=== PATIENT | female | born 1960 | race Caucasian/White ===

== ENCOUNTER 2025-02-04 10:40 | Outpatient (CLI) | payer MEDICARE, SELFPAY ==
--- OUTSIDE RECORDS SUMMARY | 2025-02-04 11:19 | XMS_ITS | Clinical Summary ---
Author Organization [facility] Address [address] [place] [id number] Care Team Providers Care Bus Attendant Name Role Phone Collins Alonzo PA-C Primary Care Provider [phone] Allergies Active Allergy Reactions Criticality Noted Date Comments No Known Drug Allergy 01/02/2003 Medications Pseudoephedrine-G uaifenesin (MUCINEX D PO) Take by mouth. Active Uneoragvq-JIB-EN- APAP (TYLENOL COLD PO) Take by mouth. Active fluticasone (FLONASE) 50 MCG/ACT nasal sprayIndications: Sinusitis 2 sprays by Both Nostrils route daily. 1 Package 1 1 Active lisinopril (PRINIVIL,ZESTRIL ) 10 MG tabletIndications :Unspecified essential hypertension Take 1 tablet by mouth daily. 90 tablet 0 1 Active order for DMEIndications:Fo ot sprain, left, initial encounter Crutches 1 Device 7 Active Active Problems Problem Noted Date Diagnosed Date Fatty liver disease, nonalcoholic 07/20/2010 Overview (05/07/2012): (Problem list name updated by automated process. Provider to review and confirm.) Hypertension goal BP (blood pressure) < 140/90 1 09/19/2009 Hypertriglyceridemia 07/19/2010 Elevated fasting glucose 07/19/2010 Obstructive sleep apnea 07/19/2010 Obesity 07/19/2010 CARDIOVASCULAR SCREENING; LDL GOAL LESS THAN 160 06/06/2010 Resolved Problems Problem Noted Date Diagnosed Date Resolved Date Symptomatic menopausal or fe male climacteric states 11/06/2006 07/19/2010 Obesity 02/21/2006 07/19/2010 Overview (05/07/2015): Problem list name updated by automated process. Provider to review Obstructive sleep apnea 02/21/200607/07 Overview (05/07/2015): Problem list name updated by automated process. Provider to review Essential hypertension 02/21/200607/19 Overview (05/07/2015): Problem list name updated by automated process. Provider to review Immunizations Immunization Administration Dates Next Due Influenza (IIV3) PF 05/28/2010 Family History Medical History Relation Comments Arthritis Daughter Cancer Father Pancreatic Diabetes Father Hypertension Father Relation Status Comments Daughter Father Alive Maternal Grandfather Maternal Grandmother Mother Alive Paternal Grandfather Paternal Grandmother Social History Tobacco Use Types Packs/Day Years Used Date Smoking Tobacco: Never Alcohol Use Standard Drinks/Week Comments No 0 (1 standard drink = 0.6 oz pur e alcohol) Comments No Sex and Gender Information Value Date Recorded Sex Assigned at Not on file Legal Sex Female 3:33 AM PRODUCT ENGINEER Gender Identity Not on file Sexual Orientation Not on file Last Filed Vital Signs Vital Sign Reading Time Taken Comments Blood Pressure 166/103 07/11/2018 8:24 PM PRODUCT ENGINEER Pulse 74 07/11/2018 8:24 PM PRODUCT ENGINEER Temperature 36.7 C (98 F) 07/11/2018 8:24 PM PRODUCT ENGINEER Respiratory Rate 18 07/11/2018 8:24 PM PRODUCT ENGINEER Oxygen Saturation 95% 07/11/2018 8:24 PM PRODUCT ENGINEER Inhaled Oxygen Concentration - - Weight 131.5 kg (290 lb) 07/11/2018 8:24 PM PRODUCT ENGINEER Height 172.7 cm (5' 8) 02/16/2017 8:36 PM CDT Body Mass Index 44.09 02/16/2017 8:36 PM CDT Plan of Treatment Health Maintenance Due Date Last Done Comments ADVANCE CARE PLANNING 1960 ANNUAL REVIEW OF HM ORDERS 1960 CT COLONOGRAPHY 1960 DEXA 1960 FIT 1960 FLEX SIG 1960 sDNA (Cologuard) 1960 ZOSTER VACCINE (1 of 2) 2008 BMP 07/16/2011 07/16/2010, 03/2009, 05/03/2007, Additional history exists CREATININE 07/16/2011 07/16/2010, 03/2009, 05/03/2007, Additional history exists LIPID 07/16/2011 07/16/2010 DIABETES SCREENING 07/20/2013 07/20/2010, 1 09/16/2009, 03/14/2009, Additional history exists PNEUMOCOCCAL VACCINE 50+ YEARS (2 of 2 - PCV) 04/15/2022 04/15/2021 FALL RISK ASSESSMENT 11/21/2023 COVID-19 VACCINE ( - season) 2024 04/15/2021, 03/25/2021 MAMMO SCREENING 04/25/2024 04/25/2023, 04/07, 05/28/2010, Additional history exists PHQ-2 (once per calendar year) 2024 INFLUENZA VACCINE (Season Ended) 2025 05/07/2021, 07/10/2018, 05/04/2016, Additional history exists DTAP/TDAP/TD VACCINE (4 - Td or Tdap) 03/14/2027 03/14/2017, 08/07/2006, 08/07/2006 RSV VACCINE (1 - 1-dose 75+ series) 2033 COLONOSCOPY 04/24/2034 04/24/2024 COLORECTAL CANCER SCREENING 04/24/2034 PAP Discontinued 05/25/2002 HEPATITIS C SCREENING Completed 01/08/2010 HPV VACCINE Aged Out No longer eligi ble based on patient's age to complete this topic MENINGITIS VACCINE Aged Out No longer eligible based on patient's age to complete this topic Procedures Procedure Name Priority Date/Time Associated Diagnosis Comments HEMOGLOBIN A1C Routine 07/20/2010 4:18 PM PRODUCT ENGINEER Elevated fasting glucose Peripheral neuropathy LIPID REFLEX TO DIRECT LDL PANEL Routine 07/16/2010 3:35 PM PRODUCT ENGINEER Hypertension goal BP (blood pressure) < 140/90 COMPREHENSIVE METABOLIC PANEL Routine 07/16/2010 3:35 PM PRODUCT ENGINEER Hypertension goal BP (blood pressure) < 140/90 MA SCREENING DIGITAL BILATERAL Routine 05/28/2010 11:43 AM CDT ABSTRACT PAP (HIM EXTERNAL RESULT) Routine 05/25/2002 from Last 3 Months or Most Recently Relevant to Health Maintenance Results * (ABNORMAL) Hemoglobin A1c (07/20/2010 4:18 PM PRODUCT ENGINEER) Hemoglobin A1C 6.6(H) 4.3 - 6.0 % [facility] Blood specimen (specimen) 07/20/2010 4:18 PM PRODUCT ENGINEER 07/20/2010 4:23 PM PRODUCT ENGINEER us Nicolas Estrada MD LAB - BLOOD ORDERABLES Final Result [facility] [id number] [place] [address] * (ABNORMAL) Lipid panel reflex to direct LDL (07/16/2010 3:35 PM PRODUCT ENGINEER) Cholesterol 220(H) 0 - 200 mg/dL [facility] [place] Comment: LDL Cholesterol is the primary guide to therapy. The NCEP recommends further evaluation of: patients with cholesterol <200 mg/dL if additional risk factors are present, cholesterol >240 mg/dL, triglycerides >150 mg/dL, or HDL <40 mg/dL. Triglycerides 247(H) 0 - 150 mg/dL [facility] HDL Cholesterol 44(L) 50 - 110 mg/dL [facility] LDL Cholesterol Calculated 126 0 - 129 mg/dL [facility] Comment: LDL Cholesterol is the primary guide to therapy: LDL-cholesterol goal in high risk patients is <100 mg/dL and in very high risk patients is <70 mg/dL. VLDL-Cholesterol 49(H) 0 - 30 mg/dL [facility] Cholesterol/HDL Ratio 5.0 0.0 - 5.0 [facility] Blood specimen (specimen) 07/16/2010 3:35 PM PRODUCT ENGINEER 07/16/2010 3:36 PM PRODUCT ENGINEER us Nicolas Estrada MD LAB - BLOOD ORDERABLES Final Result Performing Organization Address City/[facility]/ZIP Co de Phone Number [facility] [address] [place] [address] * (ABNORMAL) Comprehensive metabolic panel (07/16/2010 3:35 PM PRODUCT ENGINEER) Sodium 144 133 - 144 mmol/L [facility] Potassium 4.5 3.4 - 5.3 mmol/L [facility] Chloride 106 94 - 109 mmol/L [facility] Carbon Dioxide 21 20 - 32 mmol/L [facility] Anion Gap 18(H) 6 - 17 mmol/L [facility] Glucose 108(H) 60 - 99 mg/dL [facility] Urea Nitrogen 11 7 - 30 mg/dL [facility] Creatinine 0.59 0.52 - 1.04 mg/dL [facility] Comment:New IDMS-traceable c alibration beginning 12/06/07 GFR Estimate >90 >60 mL/min/1.7 m2 [facility] GFR Estimate If Black >90 >60 mL/min/1.7 m2 [facility] Calcium 9.9 8.5 - 10.4 mg/dL [facility] Bilirubin Total 1.1 0.2 - 1.3 mg/dL [facility] Albumin 4.6 3.9 - 5.1 g/dL [facility] Comment:Reference range [facility] on 04/29/2008. Protein Total 8.1 6.8 - 8.8 g/dL [facility] Comment:As of 07, refer ence range reflects plasma specimen type. Alkaline Phosphatase 114 40 - 150 U/L [facility] ALT 75(H) 0 - 50 U/L [facility] AST 53(H) 0 - 45 U/L [facility] Blood specimen (specimen) 07/16/2010 3:35 PM PRODUCT ENGINEER 07/16/2010 3:36 PM PRODUCT ENGINEER us Nicolas Estrada MD LAB - BLOOD ORDERABLES Final Result Performing Organization Address City/[facility]/ZIP Co de Phone Number [facility] [address] [facility] [place] [address] * Mammo Screening digital (bilat) (05/28/2010 11:43 AM CDT) Anatomical Region Laterality Modality Breast Bilateral Other 05/28/2010 11:4 3 AM CDT Impressions 05/28/2010 11:56 AM CDT SCREENING MAMMOGRAM, BILATERAL, DIGITAL w/ CAD BREAST SYMPTOMS: She is asymptomatic. A cousin had breast cancer at age 35. COMPARISON: 11/01/2002, 04/15/2005, 12/05/2006. PARENCHYMAL PATTERN: Heterogeneously dense. COMMENTS: A 1 cm sharply circumscribed nodule is stable in the lateral left breast. IMPRESSION: BI-RADS 2, BENIGN. Viet Marshall MD IMG MAMMOGRAPHY ORDERAB LES Edited * ABSTRACT PAP-NO CHARGE (05/25/2002) us Caro Alicia LAB - HIM EXTERNAL RESULT Final Result from Last 3 Months or Most Recently Relevant to Health Maintenance Care Teams Bus Attendant Relationship Specialty Start Date End Date Collins Alonzo, PAKishaC [facility] [address] [place] [address] PCP - General Physician Manager Purchasing 07/11/18
--- OUTSIDE RECORDS SUMMARY | 2025-02-04 11:19 | XMS_ITS | Clinical Summary ---
Author Organization [facility] [facility] Address [address] [place] [address] Care Team Providers Care Melter Operator Name Role Phone Collins Alonzo Primary Care Provider [phone] Allergies No known active allergies Medications fexofenadine (VASYL) 180 mg tablet Take 1 tablet by mouth once daily with a meal. 0 014 Active cholecalciferol (Vitamin D) 1,000 unit capsule Take 2,000 units by mouth once daily. 0 021 Active OneTouch Verio test strips stripIndications: Type 2 diabetes mellitus without complication, with long-term current use of insulin (HC) Dispense item covered by pt ins. E11.9 NIDDM type II - Test 1 time/day 100 Each 2 023 Active multivit,iron,min erals/lutein (CENTRUM SILVER ULTRA WOMEN'S ORAL) Take 1 Tablet by mouth once daily. Active calcium carbonate (CALTRATE 600 ORAL) Take 1 Tablet by mouth once daily. Active CPAPIndications:O SA (obstructive sleep apnea) CPAP machine for home use at pressure 8cm , Mask of choice x 1 q 3mo, nasal cushion x 2 q 1mo, nasal pillow x 2 q 1mo, and full-face cushion x 1 q 1mo, Length of need: 99, Daily use. 1 Each 11 024 Active atorvastatin (LIPITOR) 40 mg tabletIndications :Dyslipidemia Take 0.5 Tablets (20 mg) by mouth once daily. 45 Tablet 1 025 Active gabapentin (NEURONTIN) 300 mg capsuleIndication s:Neuritis Take 1 Capsule (300 mg) by mouth two times daily. 180 Capsule 1 025 Active buPROPion (WELLBUTRIN SR) 200 mg sustained-release tabletIndications :Generalized anxiety disorder Take 1 Tablet (200 mg) by mouth once daily in the morning. 90 Tablet 1 025 Active PARoxetine (PAXIL) 20 mg tabletIndications :Generalized anxiety disorder TAKE 1 TABLET BY MOUTH ONCE DAILY IN THE MORNING 90 Tablet 1 025 Active estradioL 1 mg tabletIndications :Hormone replacement therapy (HRT) Take 1 tablet by mouth once daily 90 Tablet 025 Active lisinopriL 10 mg tabletIndications :Essential hypertension Take 1 Tablet (10 mg) by mouth once daily. 90 Tablet 1 025 Active metFORMIN 500 mg tabletIndications :Type 2 diabetes mellitus without complication, without long-term current use of insulin (HC) Take 2 Tablets (1,000 mg) by mouth two times daily with meals. 360 Tablet 025 Active estradioL (Estrace) 1 mg tabletIndications :Hormone replacement therapy (HRT) Take 1 Tablet (1 mg) by mouth once daily. 90 Tablet 3 024 2024 Discontinued lisinopriL (PRINIVIL; ZESTRIL) 10 mg tabletIndications :Essential hypertension Take 1 Tablet (10 mg) by mouth once daily. 90 Tablet 2 024 2024 Discontinued metFORMIN (GLUCOPHAGE) 500 mg tabletIndications :Type 2 diabetes mellitus without complication, without long-term current use of insulin (HC) Take 2 Tablets (1,000 mg) by mouth two times daily with meals. 360 Tablet 1 025 2024 Discontinued(* Availability/F ormulary change/Cost of medication) acetaminophen (TYLENOL) 325 mg tabletIndications :Primary osteoarthritis of right knee Take 2 Tablets (650 mg) by mouth every 6 hours if needed for Pain. Max acetaminophen dose: 4000mg in 24 hrs. 100 Tablet 08/20/19 25 10:49 AM BREAK OFF WORKER 025 2024 Discontinued(* Med complete/Regim en complete/Level of care change) ibuprofen (ADVIL; MOTRIN) 600 mg tabletIndications :Primary osteoarthritis of right knee Take 1 Tablet (600 mg) by mouth every 6 hours if needed for Pain. Maximum of 3200 mg in 24 hours. 40 Tablet 08/20/19 25 10:49 AM BREAK OFF WORKER 025 2024 Discontinued(* Med complete/Regim en complete/Level of care change) oxyCODONE (ROXICODONE) 5 mg immediate release tabletIndications :Status post total knee replacement, right,Primary osteoarthritis of right knee Take 1-2 Tablets (5-10 mg) by mouth every 4 hours if needed for Pain (for moderate to severe pain (5 mg for pain scale rating 4-6; 10 mg for pain scale 7-10)). 25 Tablet 025 2024 Discontinued(* Med complete/Regim en complete/Level of care change) benzonatate (TESSALON) 200 mg capsuleIndication s:Acute cough Take 1 Capsule (200 mg) by mouth 3 times daily if needed for Cough. 30 Capsule 2 025 2024 Discontinued(* Med complete/Regim en complete/Level of care change) methylPREDNISolon e (Medrol (Pedro Pablo)) 4 mg tabletIndications :Spondylolisthesi s of lumbar region Take by mouth as instructed per packaging. 21 Tablet 025 2024 Discontinued(* Med complete/Regim en complete/Level of care change) Active Problems Problem Noted Date Diagnosed Date S/p Right total knee arthrop lasty DOS: 08/19/2024 with Cruz Luna MD 08/23/2024 Type 2 diabetes mellitus, wi thout long-term current use of insulin 08/19/2024 Benign essential HTN 08/19/2024 S/P BEENA-BSO (total abdominal hysterectomy and bilateral salpingo-oophorectomy) 02/27/2024 Hormone replacement therapy (HRT) 02/27/2024 Vaginal atrophy 02/27/2024 s/p left total knee arthropl asty DOS: 02/07/2024 by Cruz Luna MD 02/13/2024 Primary osteoarthritis of right knee 12/01/2023 Combined form of senile cataract of both eyes Chronic dryness of both eyes 11/09/2023 Class 3 severe obesity witho ut serious comorbidity with body mass index (BMI) of 40.0 to 44.9 in adult, unspecified obesity type 09/13/2023 Primary osteoarthritis of both knees 05/25/2023 Dyslipidemia 08/15/2019 Diabetic peripheral neuropathy 03/09/2018 Hammertoe of left foot 10/16/2017 Bilateral bunions 08/10/2017 Hammertoe of right foot 08/10/2017 Type 2 diabetes mellitus wit hout complication, without long-term current use of insulin 02/06/2017 Sleep apnea 03/20/2013 Obesity, unspecified 09/08/2011 Generalized anxiety disorder 08/12/2010 Fatty liver disease, nonalcoholic 07/20/2010 Overview (06/22/2022): (Problem list name updated by automated process. Provider to review and confirm.) Unspecified essential hypertension 12/23/2005 Anemia, unspecified 12/23/2005 Resolved Problems Problem Noted Date Diagnosed Date Resolved Date Primary osteoarthritis of left knee 12/01/2023 03/19/2024 Uncontrolled type 2 diabetes mellitus without complication, without long-term current use of insulin 10/24/2016 02/06/2017 Depressive disorder, not elsewhere classified 08/12/19 11 09/24/2013 Encounters Date Type Department Care Team Description 02/04/2025 Travel 02/01/2025 Travel 01/15/2025 2:20 PM CDT [place] [facility] [place] [address] [place] [address] Ayde Selby OD Eye Exam (CEE/DM) 01/15/2025 Travel 01/10/2025 Refill [facility] [address] [place] [address] Collins Alonzo PA Refill Request (Lisinopril, Metformin) 01/10/2025 Refill [facility] [address] [facility] [address] [place] [address] Alicia Obrien MD Refill Request (Estradiol) 01/09/2025 1:00 PM CDT Office Visit [facility] [address] [place] [address] Sonu Pulido MD Musculoskeletal Problem (Follow up back pain) 01/09/2025 Travel 12/13/2024 Telephone [facility] [address] [place] [address] Collins Alonzo PA Form (PLAN OF CARE) 11/13/2024 Telephone [facility] [address] [place] [address] Collins Alonzo PA Screening (Patient outreach for screening mammogram) from Last 3 Months Immunizations Immunization Administration Dates Next Due COVID-19 vaccine (AdECN 30mcg/0.3mL) P F, MDV 04/15/2021,03/25/2021 Influenza, IIV3 (Age 6-35 mos) 05/28/2015 Influenza, IIV3 (Age >=3 years) 05/28/2010 Influenza, IIV4 07/10/2018,05/04/2016 Influenza, IIV4 (=>6mos) MDV 05/07/2021 Pneumococcal Poly,23-Valent (Pneumovax) 04/15/20 21 Td (Age >=7 Years) 08/07/2006 Tdap 03/14/2017 Family History Medical History Relation Name Comments No Known Problems Brother x 2 Rheum arthritis Daughter Jyoti Cancer Father Pancreatic /josesito anoma Diabetes Father Hyperlipidemia Father Hypertension Father Arthritis Mother RA Heart Disease Mother mitral valve s tenosis Lung cancer Paternal Grandfather Good Health Son Cancer-breast No Family History Cancer-ovarian No Family History Relation Name Status Comments Brother x 2 Alive Daughter Jyoti Alive Father Maternal Grandfather Maternal Grandmother Mother Paternal Grandfather Paternal Grandmother Son Alive Social History Tobacco Use Types Packs/Day Years Used Date Smoking Tobacco: Never Smokeless Tobacco: Never Tobacco Cessation:Counseling Given: Yes Alcohol Use Standard Drinks/Week Comments Yes 0 (1 standard drink = 0.6 oz pur e alcohol) PHQ-2 Answer Date Recorded PHQ-2 TOTAL SCORE 0 08/13/2024 Social Connections Answer Date Recorded Do you often feel lonely or isolated from those around you? 0 02/07/2024 Financial Resource Strain Answer Date R ecorded Difficulty of Paying Living Expenses 3 02/07/2024 Difficulty of Paying Living Expenses Not on file 02/07/2024 Food Insecurity Answer Date Recorded Do you worry your food will run out before you are able to buy more? 1 02/07/2024 Transportation Needs Answer Date Record ed Does lack of transportation keep you from medica l appointments? 1 02/07/2024 Does lack of transportation keep you from work, meetings or getting things that you need? 1 02/07/2024 Housing Stability Answer Date Recorded What is your housing situation today? 1 02/07/2024 Interpersonal Safety Answer Date Record ed Are you being hit, kicked, p ushed or yelled at (see row info)? No 02/07/2024 Interpersonal Safety Abuse 12 - 18 Not on file 02/07/2024 Interpersonal Safety Ambulatory Vulnerability No t on file 02/07/2024 Utilities Answer Date Recorded Do you have trouble paying f or utilities (for example, heat, electricity, water, phone)? 1 02/07/2024 Comments No Sex and Gender Information Value Date Recorded Sex Assigned at Female 02/17/2020 3:43 PM CDT Legal Sex Female 5:18 AM BREAK OFF WORKER Gender Identity Female 02/17/2020 3:43 PM CDT Sexual Orientation Straight 02/17/2020 3: 43 PM CDT Occupation Industry Job Start Date Job End Date RETIRED Not on file Not on file Not on file Obstetrics History Para Term AB IAB SAB Ectopic Multiple Livin g Live Births 4 2 2 0 0 0 0 0 2 2 Date Outcome GA Total Labor Labor/2nd/3rd Weight Sex Type Anes PTL Marian A1 A5 Name Clin Term Term 1980 40w 0d 8h 00m/ 3.66 kg (8 lb 1 oz) F Vag Living 1981 40w 0d 12h 00m/ 3.69 kg (8 lb 2 oz) M Vag Living Last Filed Vital Signs Vital Sign Reading Time Taken Comments Blood Pressure 133/82 01/09/2025 1:05 PM CDT Pulse 65 01/09/2025 1:05 PM CDT Temperature 36.9 C (98.4 F) 01/09/2025 1:05 PM CDT Respiratory Rate 15 09/05/2024 9:35 AM BREAK OFF WORKER Oxygen Saturation 96% 01/09/2025 1:05 PM CDT Inhaled Oxygen Concentration - - Weight 117.8 kg (259 lb 12.8 oz) 01/09/2025 1:05 PM CDT shoes on Height 167.6 cm (5' 6) 08/19/2024 9:07 AM BREAK OFF WORKER Body Mass Index 41.93 08/19/2024 9:07 AM BREAK OFF WORKER Plan of Treatment Upcoming Encounters Date Type Department Care Team (Late st Contact Info) Description 02/04/2025 11:20 AM CDT Office Visit [facility] [address] [place] [address] Sonu Pulido MD [address] [place] [address] Arrived 03/27/2025 11:00 AM CDT Office Visit [facility] [address] [place] [address] Sonu Pulido MD [address] [place] [address] Health Maintenance Due Date Last Done Comments Zoster (shingles) series for age 50+ (1 of 2) 2008 RSV vaccine for adults or (1 - Risk 60-74 years 1-dose series) 2018 Pneumococcal series for age 50+ (2 of 2 - PCV) 04/15/2022 04/15/2021 DEXA/DXA scan for age 65+ 11/21/2023 Medicare Wellness for age 65+ 11/21/2023 COVID-19 vaccine series ( - season) 2024 04/15/2021, 03/25/2021 Mammogram for age 45-75 04/25/2024 04/25/20 23, 03/08/2022, 09/21/2017, Additional history exists Influenza Vaccine (#1) 2025 , 07/10/2018, 05/04/2016, Additional history exists BMI (ht and wt on same day) for age 18+ 08/13/2025 08/13/2024, 02/26/2024, 01/30/2024, Additional history exists Depression screening for age 12+ 08/13/2025 08/13/2024, 05/02/2024, 05/26/2023, Additional history exists Tetanus booster 03/14/2027 03/14/2017, 08/07/2006 Lipids for age 45-75 05/23/2028 05/23/2023, 12/14/2021, 06/08/2021, Additional history exists Colonoscopy through age 75 04/24/2029 04/24/2024, Hepatitis C screening for age 18-79 Completed 01/08/2010 Hepatitis B series for 19+ Aged Out N o longer eligible based on patient's age to complete this topic Medical Devices Implanted Type Area Picker And Packer Device Identifier Shelf Expiration Date Model / Serial / Lot Patella Sz 32 Dimple Ii Rnd Penon Pors - [id number] Implanted:Qty : 1 on 02/07/2024 by Cruz Luna MD at [facility] Total Joint Left: Knee [employer] 07/12/2033 [id number] / / [id number] Baseplate Tib Lt Sz 3 Dimple Ii Titnm Non Pors - [id number] Implanted:Qty : 1 on 02/07/2024 by Cruz Luna MD at [facility] Total Joint Left: Knee [employer] 07/07/2033 [id number] / / [id number] Baseplate Tib Rt Sz 3 Dimple Ii Titnm Non Pors - [id number] Implanted:Qty : 1 on 08/19/2024 by Cruz Luna MD at [facility] Total Joint Right: Knee [employer] 01/31/2034 [id number] / / [id number] Patella Sz 32 Dimple Ii Rnd Penon Pors - [id number] Implanted:Qty : 1 on 08/19/2024 by Cruz Luna MD at [facility] Total Joint Right: Knee [employer] 01/03/2034 714- / / [id number] Cmnt Bone 40gm Rally Hv - [id number] Implanted:Qty : 2 on 02/07/2024 by Cruz Luna MD at [facility] Left: Knee [employer] 06/06/2028 [id number] / / [id number] Fem Lt Sz 5n Legion Narrow [employer]xin - [id number] Implanted:Qty : 1 on 02/07/2024 by Cruz Luna MD at [facility] Left: Knee [employer] 10/29/2033 [id number] / / [id number] Insert Knee Sz 3-4 13mm Legion Cruc Ret High Flex Xlpe - [id number] Implanted:Qty : 1 on 02/07/2024 by Cruz Luna MD at [facility] Left: Knee [employer] 08/22/2032 [id number] / / [id number] Cmnt Bone 40gm Rally Hv - [id number] Implanted:Qty : 2 on 08/19/2024 by Cruz Luna MD at [facility] Right: Knee [employer] 02/03/2029 [id number] / / [id number] Fem Rt Sz 5n Legion Narrow [employer]xin - [id number] Implanted:Qty : 1 on 08/19/2024 by Cruz Luna MD at [facility] Right: Knee [employer] 03/18/2034 [id number] / / [id number] Insert Knee Sz 3-4 12mm Legion Cruc Ret High Flex Xlpe - [id number] Implanted:Qty : 1 on 08/19/2024 by Cruz Luna MD at [facility] Right: Knee [employer] 03/06/2034 [id number] / / [id number] Procedures Procedure Name Priority Date/Time Associated Diagnosis Comments AMB EPIDURAL STEROID INJECTION Routine 02/04/2025 6:54 AM CDT Lumbar spondylosis Lumbar disc herniation Spondylolisthesis of lumbar region Lumbar facet arthropathy Lumbar radiculopathy SCAN-COLONOSCOPY 04/24/2024 1:00 PM CDT LIPID PANEL Routine 05/23/2023 11:38 AM CDT Dyslipidemia XR MAMMO FREDY BILAT SCREEN Routine 04/25/2023 11:33 AM CDT Visit for screening mammogram EXPOSURE (BBF) ANTI HCV Routine 01/08/2010 3:15 PM CDT Morbid obesity (HC) from Last 3 Months or Most Recently Relevant to Health Maintenance Results * SCAN-COLONOSCOPY (04/24/2024 1:00 PM CDT) Narrative Procedure Note Reji Baca MD - 04/24/2024 12:04 PM CDT [facility] [address], [address], [place] [address] Patient Name: Shila Leung Gender: Female Exam Date: 04/24/2024 Visit Number: [id number] Age: 63 Years Date of : 1960 Attending MD: Reji Baca MD Medical Record#: [id number] Procedure: Colonoscopy Indications: Previous adenomatous polyp(s) Referring MD: Collins SANDOVAL Primary MD: Collins SANDOVAL Medications: Admitting Medications: 0.9% Normal Saline at TKO Intra Procedure Medications: Patient received monitored anesthesia care. Complications: No immediate complications Procedure: An examination of the heart and lungs was performed and found to be withinacceptable limits. . The patient was therefore deemed a reasonablecandidate for endoscopy and sedation. The risks and benefits of the procedure were explained to the patient.After obtaining informed consent, the patient received monitoredanesthesia care and I passed the scope without difficulty via the rectum to the ileum. The appendiceal orificeand ic valve were identified. The scope was retroflexed during theexamination The quality of the prep was good (Miralax/Gatorade/2 tabletsBisacodyl/Magnesium Citrate). This was a complete examination throughout the entire colon. Findings: Normal finding. Location - ileum. Polyp location: rectum. Quantity: 1. Size: 10 mm. Polyp shape:sessile. Maneuver: polypectomy was performed with a cold snare. Removal: complete. Retrieval: complete. Bleeding: none. Diverticulosis. Location: - sigmoid. Size: medium. Quantity:several. No inflammation present. Hemorrhoids. Internal hemorrhoids without bleeding. Impression: Colorectal polyp detected on colonoscopy Diverticulosis of colon without diverticulitis Hemorrhoids, internal Preliminary Plan: The patient and their physician will receive a copy of the pathologyreport as well as pathology-based recommendations for future screening orsurveillance. Pathology Results: A: RECTUM, POLYP: 1. Hyperplastic polyp COMMENTS Case reviewed with Dr. Colleen Taylor. MICROSCOPIC A: Performed Electronically signed by: Naveen Zeng MD Interpreted at [facility], [address] [place] [id number] Orders Instruction(s)/Education: Instruction/Education Timeframe Assessment Colon Polyps K63.5 Diverticulosis/Diverticulitis K63.5 Hemorrhoids (Internal) K63.5 Final Plan: Repeat colonoscopy in 5 years. We will attempt to contact you at appropriate intervals via U.S. mail. Wemay not be able to find you or contact you at that time, therefore youshould know that the responsibility for following our recommendation restswith you. If you don't hear from us at the time your procedure is due,please contact our office to schedule an appointment. If your contactinformation should change, please contact our office so that we can updateyour record. _Electronically signed by: Reji Baca MD 04/24/2024 cc: Collins Alonzo PAC cc: Collins Alonzo PAC Reji Baca MD OTHER Final Result * LIPID PANEL (05/23/2023 11:38 AM CDT) CHOLESTEROL,TOTAL 125 100 - 199 mg/dL 05/24/2023 7:19 AM CDT [facility] Comment: Cholesterol, Total Reference Ranges Desirable <200 mg/dL Borderline 200-239 mg/dL High >=240 mg/dL TRIGLYCERIDES 97 <150 mg/dL 05/24/2023 7:19 AM CDT [facility] HDL CHOLESTEROL 61 >40 mg/dL 7:19 AM CDT [facility] NON-HDL CHOLESTEROL 64 <145 mg/dl 05/24/2023 7:19 AM CDT [facility] CHOL/HDL RATIO 2.05 <4.50 05/24/2023 7:19 AM CDT [facility] LDL CHOLESTEROL 45 <=130 mg/dL 05/24/2023 7:19 AM CDT [facility] VLDL CHOLESTEROL 19 <=30 mg/dL 05/24/2023 7:19 AM CDT [facility] PROVIDER ORDERED STATUS FASTING 05/24/2023 7:19 AM CDT [facility] Blood BLOOD SPECIMEN / Unknown Venipuncture / Unknown 05/23/2023 11:38 AM CDT 05/23/2023 11:39 AM CDT us Collins ZAMORA CHEMISTRY Final Resul t [facility] [address] [place] [id number], [place] * XR MAMMO FREDY BILAT SCREEN (04/25/2023 11:33 AM CDT) Anatomical Region Laterality Modality BREASTS, Breast Left, Breast Right Bilateral Mammography Impressions 04/25/2023 11:47 AM CDT There is no radiographic evidence for malignancy. Recommend annual mammograms. MAMMOGRAM ASSESSMENT: ACR 1 Negative PATIENTS: You will also receive a letter with your examination results in an easy to read format. If you have questions about your results, please contact your referring provider. Narrative 04/25/2023 11:47 AM CDT For Patients: As a result of the 21st Century Cures Act, medical imaging exams and procedure reports are released immediately into your electronic medical record. You may view this report before your referring provider. If you have questions, please contact your health care provider. XR MAMMO FREDY BILAT SCREEN [[id number]] CLINICAL HISTORY: This is an asymptomatic 62 y.o. patient. INDICATION FOR EXAM: Mammogram Screening. TECHNIQUE: CC & MLO views were obtained. This study was evaluated with the assistance of Computer-Aided Detection. Breast Tomosynthesis was used in interpretation. COMPARISON FILM: Yes 03/08/22 [facility] 09/21/17 [facility] FINDINGS: The breasts have scattered areas of fibroglandular density. There are no dominant masses, suspicious micro calcifications or areas of architectural distortion. us Collins ZAMORA MAMMO Final Resul t * PATIENT SOURCE ANTI HCV (01/08/2010 3:15 PM CDT) SOURCE ANTI HCV Non-react deann [facility] Blood specimen (specimen) BLOOD SPECIMEN / Unknown 01/08/2010 3:15 PM CDT 01/08/2010 3:13 PM CDT us Tr Concepcion MD SEND OUTS Final Result [facility] INTERNAL ZIP [address] [address] from Last 3 Months or Most Recently Relevant to Health Maintenance [place] [address] [place] [address] MEDICARE ADVANTAGE MR MEDICARE PART A HB ONLY HC UCARE MEDICARE PD Advance Directives Documents on File Type Date Recorded Patient Refining Supervisor Expl anation Healthcare Directive 12/17/2019 3:56 PM * Full Code (Latest Code Status on File) Date Activated Date Inactivated Comments 08/19/2024 8:29 AM 08/20/2024 1:40 PM Question Answer Comments Code Status Discussion: Discussed * Full Code Date Activated Date Inactivated Comments 02/07/2024 5:41 AM 02/08/2024 1:10 PM Question Answer Comments Code Status Discussion: Discussed * Full Code Date Activated Date Inactivated Comments 12/20/2019 6:11 AM 12/21/2019 1:46 PM * Full Code Date Activated Date Inactivated Comments 03/21/2013 12:34 PM 03/21/2013 5:41 PM Care Teams Melter Operator Relationship Specialty [place] [address] [place] [address] PCP - General Family Practice 02/29/12 [facility] [address], [place] [address] Ophthalmology 09/14/21
--- OUTSIDE RECORDS SUMMARY | 2025-02-04 11:19 | XMS_ITS | Clinical Summary ---
Author Organization [facility] Address [address], [place] [address] Care Team Providers Care Pollution Control Technician Name Role Phone Collins Alonzo PA-C Primary Care Provider Source Comments You are receiving this document as you are listed as the primary care provider,follow-up provider, or the patient has been referred to you for consultation.This is in compliance with the Medicare and[facility] EHR Incentive Program,which states Providers who transition their patient to another setting of careor provider of care or refers their patient to another provider of care shouldprovide summary care record for each transition of care or referral. [employer] Allergies No known active allergies Medications lisinopril (AKA ZESTRIL) 10 MG tablet Take 10 mg by mouth daily (every 24 hours). 4 Active HYDROcodone-julisa taminophen (NORCO) 5-325 MG tablet Take 1 tablet by mouth every 4 hours as needed for Pain. 60 tablet 1 4 Active buPROPion (WELLBUTRIN) 100 MG tablet Take 100 mg by mouth once. 4 Active PARoxetine (PAXIL) 10 MG tablet Take 10 mg by mouth every morning. 4 Active fexofenadine (VASYL) 180 MG tablet Take 180 mg by mouth daily (every 24 hours). 4 Active ibuprofen (MOTRIN) 800 MG tablet Take 1 tablet by mouth every 8 hours as needed for Pain. 90 tablet 12 4 Active atorvastatin (LIPITOR) 40 MG tablet Take 40 mg by mouth daily. Active triamcinolone acetonide (KENALOG) 0.1 % cream Apply topically two times a day. Active metFORMIN (GLUCOPHAGE) 500 MG tablet Take 1,000 mg by mouth two times a day with meals. Active oxyCODONE-aceta minophen (PERCOCET) 5-325 MG tablet Take 1-2 Tabs by mouth every 6 hours as needed. 30 Tab 8 Active Active Problems Problem Noted Date Diagnosed Date DM type 2 (diabetes mellitus, type 2) 06/08/2017 Immunizations Immunization Administration Dates Next Due Tdap 08/07/2006 Social History Tobacco Use Types Packs/Day Years Used Date Smoking Tobacco: Never Smokeless Tobacco: Never Comments Unknown Sex and Gender Information Value Date Recorded Sex Assigned at Not on file Legal Sex Female 10:07 AM CDT Gender Identity Not on file Sexual Orientation Not on file Last Filed Vital Signs Vital Sign Reading Time Taken Comments Blood Pressure 115/73 10/27/2017 10:15 AM CDT Pulse 62 10/27/2017 10:15 AM CDT Temperature 36.3 C (97.3 F) 10/27/2017 9:30 AM CDT Respiratory Rate 16 10/27/2017 9:51 AM CDT Oxygen Saturation 93% 10/27/2017 10:15 AM CDT Inhaled Oxygen Concentration - - Weight 126.1 kg (278 lb) 10/27/2017 6:17 AM CDT Height 167.6 cm (5' 6) 10/27/2017 6:17 AM CDT Body Mass Index 44.87 10/27/2017 6:17 AM CDT Plan of Treatment Health Maintenance Due Date Last Done Comments Colon Cancer Screening Plan Due 1960 Diabetes: Creatinine 1960 Diabetes: Eye Exam 1960 Diabetes: Foot Exam 1960 Diabetes: Lipid Panel 1960 Diabetes: Urine Microalbumin 1960 Hep C Screening (Preventive Services) 1960 Mammogram 1960 Adult Preventive Visit 1976 Zoster/Shingles Vaccine (1 of 2) 2008 Diabetes: HGBA1C 09/09/2018 03/09/2018 Pneumococcal Vaccine 50+ Yrs (2 of 2 - PCV) 04/15/2022 04/15/2021 COVID-19 Vaccine (3 - 2023- season) 2024 04/15/2021, 03/25/2021 Influenza Vaccine (Season Ended) 2025 07/10/2018, 05/04/2016, 05/28/2015, Additional history exists DTaP/Tdap/Td Vaccine (3 - Tdap) 03/14/2027 03/14/2017, 08/07/2006, 08/07/2006 RSV Vaccine (1 - 1-dose 75+ series) 2033 HepA Vaccine Aged Out No longer eligi ble based on patient's age to complete this topic HepB Vaccine Aged Out No longer eligi ble based on patient's age to complete this topic Hib Vaccine Aged Out No longer eligi ble based on patient's age to complete this topic IPV (Polio) Vaccine Aged Out No longe r eligible based on patient's age to complete this topic MCV4 Vaccine Aged Out No longer eligi ble based on patient's age to complete this topic Meningococcal B Vaccine Aged Out No l onger eligible based on patient's age to complete this topic Medical Devices Implanted Type Area Animal Nutrition Teacher Device Identifier Shelf Expiration Date Model / Serial / Lot Scr Radu Sftp Ti 2.4x16 - [id number] Implanted:Qty: 2 on 10/27/2017 by Castro Brower DPM at [facility] DEVICE Left: FOOT XX-Synthes [facility] [id number] / / [id number] Insurance [facility] Advance Directives * Full Code (Latest Code Status on File) Date Activated Date Inactivated Comments 10/27/2017 9:31 AM 10/27/2017 12:51 PM * Full Code Date Activated Date Inactivated Comments 08/16/2017 9:40 AM 08/16/2017 1:01 PM Care Teams Pollution Control Technician Relationship Specialty Start Date End Date Collins Alonzo PA-C [address] [place] [address] PCP - General Physician Education Rn 06/08/17
--- OUTSIDE RECORDS SUMMARY | 2025-02-04 11:19 | XMS_ITS | Encounter Summary ---
Author Organization [facility] Address [address] [place] [address] Care Team Providers Care Natural Resource Officer Name Role Phone Collins Alonzo PA-C Primary Care Provider [phone] Encounter Details Date Type Department Care Team (Late st Contact Info) Description 12/23/2013 Orders Only [facility] Orthopedic [facility] [address] [place] [address] Juanjo Medina MD [address] [place] [address] RCT (rotator cuff tear) Social History Tobacco Use Types Packs/Day Years Used Date Smoking Tobacco: Never Assessed Comments Unknown Sex and Gender Information Value Date Recorded Sex Assigned at Not on file Legal Sex Female 10:07 AM CDT Gender Identity Not on file Sexual Orientation Not on file documented as of this encounter Plan of Treatment Not on file documented as of this encounter Visit Diagnoses Diagnosis RCT (rotator cuff tear) Rotator cuff (capsule) sprain documented in this encounter Care Teams Natural Resource Officer Relationship Specialty Start Date End Date Collins Alonzo PA-C [address] [place] [address] PCP - General Physician Real Estate Associate 06/08/17 documented as of this encounter
--- OUTSIDE RECORDS SUMMARY | 2025-02-04 11:20 | XMS_ITS | Patient Health Record ---
Author Organization [facility] Address [address] [place] [address] Care Team Providers Care Executive Wellness Programs Director Name Role Phone VALDO WALTERS [phone] Allergies No Known Allergies Reason For Referral No Information Medications Medication SIG (Take, Route, Frequency, Duration) Notes Start Date End Date Status Vitamin D 25 MCG (1000 UT) 2 tablets Orally daily Active B Complex - One 500mg Capsule Or ally daily 09/22/2022 Active Fish Oil 1000 MG 1 capsule with food Orally Once a day 09/22/2022 Active Wellbutrin SR 100 MG 1/2 tab Orally Once a day Active metFORMIN HCl 500 MG 1 tablet with a dede l Orally Once a day Active Atorvastatin Calcium 10 MG 1/2 tab Orally Once a day Active Lisinopril 20 MG 1 tablet Orally Once a day Active Biotin 10 MG 1 tablet Orally Once a day Active Centrum Silver - as directed Orally Active Biest/Testosterone 80/20 0.5mg Biest/ 0. 5mg Test (biest 2mg/ test 2mg/ 1gm) use 0.25gm Apply to thinned skin areas such as fore arms or behind knees daily; Duration: 90 days Active Trulicity 0.75 MG/0.5ML as directed Subcutaneous Active Gabapentin 400 MG 1 capsule Orally Onc e a day Active Paxil 20 MG 1 tablet in the morn ing Orally Once a day Active DHEA 5mg one tablet oral daily 09/22/2022 Active Progesterone 100 MG 1 capsule Orally humble ly at bedtime; Duration: 30 days Activ e Social History Tobacco Use: Social History Observation Description Date Details (start date - stop date) Never Smoker NA - NA Tobacco Use/Smoking Question Answer Notes Are you a nonsmoker Alcohol Screen (Audit-C) Question Answer Notes Did you have a drink containing alcohol in the p ast year? 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 Plan Of Treatment Future Test Test Name Order Date VITAMIN B12 12/20/2022 ESTRADIOL 01/26/2023 PROGESTERONE 01/26/2023 TESTOSTERONE,FR(DIALYSIS) AND TOTAL(LC/M S/MS) 01/26/2023 Insurance Providers Payer Name Payer Address Payer Phone Subscriber Number Group Number Insured Name Patient Relationship to Insured Coverage Start Date Coverage End Date [facility] [address] [place], [place] [id number] FLACO ROGERS Self - patient is the insured 3 Medical (General) History Medical History History ICD Code Musculoskeletal: Chronic Low Back Pain# Endocrine: Diabetes# Type of Diabetes: Type 2. We ll controlled with Metformin, Trulicity and diet# Neuro-Psychosocial: Anxiety# Surgical History Surgery Date(Month/Year) hammer toe sand bunion 2019 rotator cuff, right 2017 hysterectomy 2004
--- OUTSIDE RECORDS SUMMARY | 2025-02-05 00:28 | XMS_ITS | Clinical Summary ---
Author Organization [facility] Address [address], [place] [address] Care Team Providers Care Liner Worker Name Role Phone Collins Alonzo PA-C Primary Care Provider [phone] Source Comments You are receiving this document as you are listed as the primary care provider,follow-up provider, or the patient has been referred to you for consultation.This is in compliance with the Medicare and[facility] Hospital[facility] EHR Incentive Program,which states Providers who transition their patient to another setting of careor provider of care or refers their patient to another provider of care shouldprovide summary care record for each transition of care or referral. [facility] Allergies No known active allergies Medications lisinopril [...] this topic Medical Devices Implanted Type Area Director Electronics Device Identifier Shelf Expiration Date Model / Serial / Lot Scr Radu Sftp Ti 2.4x16 - [id number] Implanted:Qty: 2 on 10/27/2017 by Castro Brower DPM at [facility] DEVICE Left: FOOT XX-Synthes [facility] [id number] / / [id number] Insurance [facility] Advance Directives * Full Code (Latest Code Status on File) Date Activated Date Inactivated Comments 10/27/2017 9:31 AM 10/27/2017 12:51 PM * Full Code Date Activated Date Inactivated Comments 08/16/2017 9:40 AM 08/16/2017 1:01 PM Care Teams Liner Worker Relationship Specialty Start Date End Date Collins Alonzo PA-C [address] [place] [address] PCP - General Physician Director Digital Communications 06/08/17
--- OUTSIDE RECORDS SUMMARY | 2025-02-05 00:28 | XMS_ITS | Clinical Summary ---
Author Organization [employer] [facility] Address [address] [place] [address] Care Team Providers Care Service Or Work Dispatcher Chief Name Role Phone Collins Alonzo Primary Care Provider [phone] Allergies No known active allergies Medications fexofenadine [...] hrs. 100 Tablet 08/20/19 25 10:49 AM FIELD SERVICE ENGINEER 025 2024 Discontinued(* Med complete/Regim en complete/Level of care change) ibuprofen (ADVIL; MOTRIN) 600 mg tabletIndications :Primary osteoarthritis of right knee Take 1 Tablet (600 mg) by mouth every 6 hours if needed for Pain. Maximum of 3200 mg in 24 hours. 40 Tablet 08/20/19 25 10:49 AM FIELD SERVICE ENGINEER 025 2024 Discontinued(* Med complete/Regim en complete/Level [...] Date Type Department Care Team Description 02/04/2025 11:20 AM CDT Office Visit [facility] [address] [place] [address] Sonu Pulido MD Procedure (Right S1 TFESI) 02/04/2025 Travel 02/01/2025 Travel 01/15/2025 2:20 PM CDT Office Visit [facility] [address] [place] [address] Ayde Selby OD Eye Exam (CEE/DM) 01/15/2025 Travel 01/10/[address] [facility] [address] [place] [address] Collins Alonzo PA Refill Request (Lisinopril, Metformin) 01/10/2025 [facility] [address] [place] [address] Alicia Obrien MD Refill Request (Estradiol) 01/09/2025 1:00 PM CDT Office Visit [facility] [address] [place] [address] Sonu Pulido MD Musculoskeletal Problem (Follow up back pain) 01/09/2025 Travel 12/13/[address] [facility] [address] [place] [address] Collins Alonzo PA Form (PLAN OF CARE) 11/13/[address] [facility] [address] [place] [address] Collins Alonzo PA Screening (Patient outreach for screening mammogram) from Last 3 Months Immunizations Immunization Administration Dates Next Due COVID-19 vaccine (Zoodak 30mcg/0.3mL) P F, MDV 04/15/2021,03/25/2021 Influenza, IIV3 [...] PM CDT Legal Sex Female 5:18 AM FIELD SERVICE ENGINEER Gender Identity Female 02/17/2020 3:43 PM CDT [...] CDT Respiratory Rate 15 09/05/2024 9:35 AM FIELD SERVICE ENGINEER Oxygen Saturation 96% 01/09/2025 1:05 PM CDT Inhaled Oxygen Concentration - - Weight 117.8 kg (259 lb 12.8 oz) 01/09/2025 1:05 PM CDT shoes on Height 167.6 cm (5' 6) 08/19/2024 9:07 AM FIELD SERVICE ENGINEER Body Mass Index 41.93 08/19/2024 9:07 AM FIELD SERVICE ENGINEER Plan of Treatment Upcoming Encounters Date Type Department Care Team (Late st Contact Info) Description 03/27/2025 11:00 AM CDT Office Visit [facility] [address] [place] [address] Sonu Pulido MD [address] [place] [address] Health Maintenance Due Date Last Done Comments [...] this topic Medical Devices Implanted Type Area Building Attendant Device Identifier Shelf Expiration Date Model / Serial / Lot Patella Sz 32 Dimple Ii Rnd Penon Pors - [id number] Implanted:Qty : 1 on 02/07/2024 by Cruz Luna MD at [facility] Ortho Total Joint Left: Knee [employer] 07/12/2033 71 / / [id number] Baseplate Tib Lt Sz 3 Dimple Ii Titnm Non Pors - [id number] Implanted:Qty : 1 on 02/07/2024 by Cruz Luna MD at [facility] Ortho Total Joint Left: Knee [employer] 07/07/2033 [id number] / / [id number] Baseplate Tib Rt Sz 3 Dimple Ii Titnm Non Pors - [id number] Implanted:Qty : 1 on 08/19/2024 by Cruz Luna MD at [facility] Ortho Total Joint Right: Knee [employer] 01/31/2034 [id number] / / [id number] Patella Sz 32 Dimple Ii Rnd Penon Pors - [id number] Implanted:Qty : 1 on 08/19/2024 by Cruz Luna MD at [facility] Ortho Total Joint Right: Knee [employer] 01/03/2034 71 / / [id number] Cmnt Bone 40gm Rally Hv - [id number] Implanted:Qty : 2 on 02/07/2024 by Cruz Luna MD at [facility] Left: Knee [employer] 06/06/2028 [id number] / / [id number] Fem Lt Sz 5n Legion Narrow Croxin - [id number] Implanted:Qty : 1 on 02/07/2024 by Cruz Luna MD at [facility] Left: Knee [employer] 10/29/2033 [id number] / / [id number] Insert Knee Sz 3-4 13mm Legion Cruc Ret High Flex Xlpe - [id number] Implanted:Qty : 1 on 02/07/2024 by Cruz Luna MD at [facility] Left: Knee [employer] 08/22/2032 [id number] / / [id number] Cmnt Bone 40gm Rally Hv - [id number] Implanted:Qty : 2 on 08/19/2024 by Cruz Luna MD at [facility] Right: Knee [employer] 02/03/2029 [id number] / / [id number] Fem Rt Sz 5n Legion Narrow Croxin - [id number] Implanted:Qty : 1 on 08/19/2024 by Cruz Luna MD at [facility] Right: Knee [employer] 03/18/2034 [id number] / / [id number] Insert Knee Sz 3-4 12mm Legion Cruc Ret High Flex Xlpe - [id number] Implanted:Qty : 1 on 08/19/2024 by Cruz Luna MD at [facility] Right: Knee [employer] 03/06/2034 [id number] / / [id number] Procedures Procedure Name Priority Date/Time Associated Diagnosis [...] Baca MD - 04/24/2024 12:04 PM CDT [facility] [address] [facility], [address], [place] [address] Patient Name: Shila Leung Gender: Female Exam Date: 04/24/2024 Visit Number: [id number] Age: 63 Years Date of : 1960 Attending MD: Reji Baca MD Medical Record#: [id number] Procedure: Colonoscopy Indications: Previous adenomatous polyp(s) Referring [...] signed by: Naveen Zeng MD Interpreted at [facility], [address] [place], [place] [address] [address] Orders Instruction(s)/Education: Instruction/Education Timeframe Assessment Colon Polyps [...] 04/24/2024 cc: Collins Alonzo PAC cc: Collins SANDOVAL us Reji Baca MD OTHER Final Result * LIPID PANEL (05/23/2023 11:38 AM CDT) CHOLESTEROL,TOTAL 125 100 - 199 mg/dL 05/24/2023 7:19 AM CDT [facility] Comment: Cholesterol, Total Reference Ranges Desirable <200 mg/dL Borderline 200-239 mg/dL High >=240 mg/dL TRIGLYCERIDES 97 <150 mg/dL 05/24/2023 7:19 AM CDT [facility] HDL CHOLESTEROL 61 >40 mg/dL 7:19 AM CDT [facility] NON-HDL CHOLESTEROL 64 <145 mg/dl 05/24/2023 7:19 AM CDT [facility] CHOL/HDL RATIO 2.05 <4.50 05/24/2023 7:19 AM CDT [facility] LDL CHOLESTEROL 45 <=130 mg/dL 05/24/2023 7:19 AM CDT [facility] VLDL CHOLESTEROL 19 <=30 mg/dL 05/24/2023 7:19 AM CDT [facility] PROVIDER ORDERED STATUS FASTING 05/24/2023 7:19 AM CDT [facility] Blood BLOOD SPECIMEN / Unknown Venipuncture / Unknown 05/23/2023 11:38 AM CDT 05/23/2023 11:39 AM CDT us Collins ZAMORA CHEMISTRY Final Resul t [facility] [address] [place] [address], [place] * XR MAMMO FREDY BILAT SCREEN [...] For Patients: As a result of the Century Cures Act, medical imaging exams and procedure reports are released immediately into your electronic medical record. You may view this report before your referring provider. If you have questions, please contact your health care provider. XR MAMMO FREDY BILAT SCREEN [[id number]] CLINICAL HISTORY: This is an asymptomatic 62 y.o. patient. INDICATION FOR EXAM: Mammogram Screening. TECHNIQUE: CC & MLO views were obtained. This study was evaluated with the assistance of Computer-Aided Detection. Breast Tomosynthesis was used in interpretation. COMPARISON FILM: Yes 03/08/22 [facility] [employer] 09/21/17 [facility] FINDINGS: The breasts have scattered areas of fibroglandular density. There are no dominant masses, suspicious micro calcifications or areas of architectural distortion. us Collins Alonzo PA MAMMO Final Resul t * PATIENT SOURCE ANTI HCV (01/08/2010 3:15 PM CDT) SOURCE ANTI HCV Non-react deann [facility] Blood specimen (specimen) BLOOD SPECIMEN / Unknown 01/08/2010 3:15 PM CDT 01/08/2010 3:13 PM CDT us Tr Concepcion MD SEND OUTS Final Result [facility] INTERNAL ZIP [id number] [address] from Last 3 Months or Most Recently Relevant to Health Maintenance Insurance [facility] MEDICARE ADVANTAGE MR MEDICARE PART A HB ONLY [facility] MEDICARE PDGM Advance Directives Documents on File Type Date Recorded Patient Boat Buffer Plastic Expl anation Healthcare Directive 12/17/2019 3:56 PM [...] 12:34 PM 03/21/2013 5:41 PM Care Teams Service Or Work Dispatcher Chief Relationship Specialty [place] [address] [place] [address] PCP - General Family Practice 02/29/12 [facility] [address] [place] [address] Ophthalmology 09/14/21
--- OUTSIDE RECORDS SUMMARY | 2025-02-05 00:28 | XMS_ITS | Encounter Summary ---
Author Organization [facility] Address [address] [place] [address] Care Team Providers Care Dog Breeder Name Role Phone Collins Alonzo PA-C Primary Care Provider [phone] Encounter Details Date Type Department Care Team (Late st Contact Info) Description 12/23/2013 Orders Only [facility] [address] [place] [address] Juanjo Medina MD [address] [place] [address] RCT (rotator cuff tear) Social History Tobacco [...] sprain documented in this encounter Care Teams Dog Breeder Relationship Specialty Start Date End Date Collins Alonzo PA-C [address] [place] [address] PCP - General Physician Acid Treater 06/08/17 documented as of this encounter
--- OUTSIDE RECORDS SUMMARY | 2025-02-05 00:28 | XMS_ITS | Clinical Summary ---
Author Organization [facility] Address [address] [place] [address] Care Team Providers Care Negotiations Director Name Role Phone Collins Alonzo PA-C Primary Care Provider [phone] Allergies Active Allergy Reactions Criticality Noted Date Comments No Known Drug Allergy 01/02/2003 Medications Pseudoephedrine-G uaifenesin (MUCINEX D PO) Take by mouth. Active Urxqidhsk-GTG-TB- APAP (TYLENOL COLD PO) Take by mouth. [...] on file Legal Sex Female 3:33 AM [employer] Gender Identity Not on file Sexual Orientation Not on file Last Filed Vital Signs Vital Sign Reading Time Taken Comments Blood Pressure 166/103 07/11/2018 8:24 PM [employer] Pulse 74 07/11/2018 8:24 PM [employer] Temperature 36.7 C (98 F) 07/11/2018 8:24 PM [employer] Respiratory Rate 18 07/11/2018 8:24 PM [employer] Oxygen Saturation 95% 07/11/2018 8:24 PM [employer] Inhaled Oxygen Concentration - - Weight 131.5 kg (290 lb) 07/11/2018 8:24 PM [employer] Height 172.7 cm (5' 8) 02/16/2017 8:36 [...] Comments HEMOGLOBIN A1C Routine 07/20/2010 4:18 PM [employer] Elevated fasting glucose Peripheral neuropathy LIPID REFLEX TO DIRECT LDL PANEL Routine 07/16/2010 3:35 PM [employer] Hypertension goal BP (blood pressure) < 140/90 COMPREHENSIVE METABOLIC PANEL Routine 07/16/2010 3:35 PM [employer] Hypertension goal BP (blood pressure) < 140/90 MA SCREENING DIGITAL BILATERAL Routine 05/28/2010 11:43 AM CDT ABSTRACT PAP (HIM EXTERNAL RESULT) Routine 05/25/2002 from Last 3 Months or Most Recently Relevant to Health Maintenance Results * (ABNORMAL) Hemoglobin A1c (07/20/2010 4:18 PM [employer]) Hemoglobin A1C 6.6(H) 4.3 - 6.0 % [facility] Blood specimen (specimen) 07/20/2010 4:18 PM [employer] 07/20/2010 4:23 PM [employer] us Nicolas Estrada MD LAB - BLOOD ORDERABLES Final Result [facility] [address] [place] [address] * (ABNORMAL) Lipid panel reflex to direct LDL (07/16/2010 3:35 PM [employer]) Cholesterol 220(H) 0 - 200 mg/dL [facility] Comment: LDL Cholesterol is the primary guide to therapy. The NCEP recommends further evaluation of: patients with cholesterol <200 mg/dL if additional risk factors are present, cholesterol >240 mg/dL, triglycerides >150 mg/dL, or HDL <40 mg/dL. Triglycerides 247(H) 0 - 150 mg/dL [facility] HDL Cholesterol 44(L) 50 - 110 mg/dL [facility] LDL Cholesterol Calculated 126 0 - 129 mg/dL [facility] Comment: LDL Cholesterol is the primary guide to therapy: LDL-cholesterol goal in high risk patients is <100 mg/dL and in very high risk patients is <70 mg/dL. VLDL-Cholesterol 49(H) 0 - 30 mg/dL [facility] Cholesterol/HDL Ratio 5.0 0.0 - 5.0 [facility] Blood specimen (specimen) 07/16/2010 3:35 PM [employer] 07/16/2010 3:36 PM [employer] us Nicolas Estrada MD LAB - BLOOD ORDERABLES Final Result Performing Organization Address City/[facility]/ZIP Co de Phone Number [facility] [address] [place] [address] * (ABNORMAL) Comprehensive metabolic panel (07/16/2010 3:35 PM [employer]) Sodium 144 133 - 144 mmol/L [facility] Potassium 4.5 3.4 - 5.3 mmol/L [facility] Chloride 106 94 - 109 mmol/L [facility] Carbon Dioxide 21 20 - 32 mmol/L [facility] Anion Gap 18(H) 6 - 17 mmol/L [facility] Glucose 108(H) 60 - 99 mg/dL [facility] Urea Nitrogen 11 7 - 30 mg/dL [facility] Creatinine 0.59 0.52 - 1.04 mg/dL [facility] Comment:New IDMS-traceable c alibration beginning 12/06/07 GFR Estimate >90 >60 mL/min/1.7 m2 [facility] GFR Estimate If Black >90 >60 mL/min/1.7 m2 [facility] Calcium 9.9 8.5 - 10.4 mg/dL [facility] Bilirubin Total 1.1 0.2 - 1.3 mg/dL [facility] Albumin 4.6 3.9 - 5.1 g/dL [facility] Comment:Reference range [facility] on 04/29/2008. Protein Total 8.1 6.8 - 8.8 g/dL [facility] Comment:As of 07, refer ence range reflects plasma specimen type. Alkaline Phosphatase 114 40 - 150 U/L [facility] ALT 75(H) 0 - 50 U/L [facility] AST 53(H) 0 - 45 U/L [facility] Blood specimen (specimen) 07/16/2010 3:35 PM [employer] 07/16/2010 3:36 PM [employer] us Nicolas Estrada MD LAB - BLOOD ORDERABLES Final Result Performing Organization Address City/[facility]/ZIP Co de Phone Number [facility] [address] [place] [address] * Mammo Screening digital (bilat) (05/28/2010 11:43 [...] Recently Relevant to Health Maintenance Care Teams Negotiations Director Relationship Specialty Start Date End Date Collins Alonzo, PAKishaC [facility] [address] [place] [address] PCP - General Physician [employer] Production Worker 07/11/18
--- OUTSIDE RECORDS SUMMARY | 2025-02-05 00:28 | XMS_ITS | Patient Health Record ---
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 Plan Of Treatment Future Test Test Name Order Date VITAMIN B12 12/20/2022 ESTRADIOL 01/26/2023 PROGESTERONE 01/26/2023 TESTOSTERONE,FR(DIALYSIS) AND TOTAL(LC/M S/MS) 01/26/2023 Insurance Providers Payer Name Payer Address Payer Phone Subscriber Number Group Number Insured Name Patient Relationship to Insured Coverage Start Date Coverage End Date [facility] [address] [place], [place] [id number] FLACO ROGERS Self - patient is the insured 3 Medical (General) History Medical History History ICD Code Musculoskeletal: Chronic Low Back Pain# Endocrine: Diabetes# Type of Diabetes: Type 2. We ll controlled with Metformin, Trulicity and diet# Neuro-Psychosocial: Anxiety# Surgical History Surgery Date(Month/Year) hammer toe sand bunion 2019 rotator cuff, right 2017 hysterectomy 2004
== END 2025-02-04 10:41 | disposition home or self-care (01) ==
PROVIDERS: PCP Family Medicine; Visit Provider Family Medicine
DX: M54.16 Radiculopathy, lumbar region (principal); M51.369 Other intervertebral disc degeneration, lumbar region without mention of lumbar back pain or lower extremity pain
CPT/HCPCS: 64483; J1100; Q9966